=== PATIENT | male | born 1945 | race Asian ===

== ENCOUNTER 2022-06-05 23:52 | Emergency (ER) | payer MEDICARE, OTHER ==
[~2022-06-05] VITALS: Ht 170.2 cm; Wt 59.9 kg
[2022-06-06] MEDS ORDERED: MORPHINE SULFATE 2 MG/ML SYRINGE IVP ONE (00:45)
[2022-06-06] MEDS ORDERED: SODIUM CHLORIDE 0.9% 1,000 ML IV ONE (00:45)
[2022-06-06 01:07] LABS: BASOPHILS % (AUTO) 0.7 % (0.0-2.0); EOSINOPHILS % (AUTO) 2.4 % (1.0-6.0); HEMATOCRIT 39.3 % (41-53); LYMPHOCYTES # (AUTO) 1.6 K/uL (1.0-4.8); LYMPHOCYTES % (AUTO) 15.7 % (22.0-44.0); MEAN CORPUSCULAR HEMOGLOBIN 33.2 pg (26.0-34.0); MEAN CORPUSCULAR HGB CONC 35.7 G/dL (31.0-37.0); MEAN CORPUSCULAR VOLUME 93 fL (80-100); MONOCYTES # (AUTO) 0.9 K/uL (0.1-1.0); MONOCYTES % (AUTO) 8.6 % (2.0-9.0); NEUTROPHILS # (AUTO) 7.3 K/uL (1.8-7.7); NEUTROPHILS % (AUTO) 72.6 % (40.0-70.0); PLATELET COUNT (AUTO) 185 K/uL (150-450); RED BLOOD CELL COUNT(AUTO) 4.23 MIL/uL (4.50-5.90); RED CELL DISTRIBUTION WIDTH 14.8 % (11.5-14.5)
[2022-06-06 01:10] LABS: APPEARANCE,URINE CLEAR (CLEAR); BILIRUBIN,URINE NEGATIVE (NEGATIVE); GLUCOSE, URINE (UA) NEGATIVE (NEGATIVE); KETONES,URINE NEGATIVE (NEGATIVE); LEUKOCYTE ESTERASE ,URINE NEGATIVE (NEGATIVE); NITRATE,URINE NEGATIVE (NEGATIVE); OCCULT BLOOD,URINE NEGATIVE (NEGATIVE); PROTEIN,URINE NEGATIVE (NEGATIVE); SPECIFIC GRAVITIY, URINE 1.015 (1.003-1.030); UROBILINOGEN,URINE <=1.0 mg/dL (<=1.0)
[2022-06-06 01:18] LABS: ANION GAP 2 mmol/L (8-16); CALCIUM, TOTAL 8.7 mg/dL (8.8-10.5); CARBON DIOXIDE 32 mmol/L (22-29); CHLORIDE 101 mmol/L (98-107); CREATININE 0.82 mg/dL (0.60-1.30); GLUCOSE,RANDOM 121 mg/dL (70-110); POTASSIUM 3.9 mmol/L (3.5-5.1); SODIUM SERUM 135 mmol/L (136-145); UREA NITROGEN, BLOOD 12 mg/dL (7-18)
[2022-06-06 01:22] LABS: GLOMERULAR FILTR. RATE CALC > 60 mL/min (>60)
[2022-06-06 01:25] LABS: ALANINE AMINOTRANSFERASE 13 U/L (12-78); ALBUMIN 3.4 g/dL (3.4-5.0); ALKALINE PHOSPHATASE 65 U/L (46-116); ASPARTATE AMINOTRANSFERASE 15 U/L (15-37); BILIRUBIN,TOTAL 0.5 mg/dL (0.1-1.0); LIPASE 216 U/L (73-393); TOTAL PROTEIN, SERUM 6.8 g/dL (6.4-8.2)
[2022-06-06] MEDS ORDERED: OMEP20 PO (05:12)
[2022-06-06 05:22] VITALS: BP 139/67
== END 2022-06-06 06:03 | disposition home or self-care (01) ==
LOC: EMS 23:55
DX: R10.13 Epigastric pain (principal); F17.210 Nicotine dependence, cigarettes, uncomplicated; I10 Essential (primary) hypertension
CPT/HCPCS: 99285; 80053; 81003; 83690; 84484; 85025; 36415; 74176; 96374; 71045; 96361; 93005; J2270; J7030; 96375

== ENCOUNTER 2024-07-25 08:56 | Emergency (ER) | payer MEDICARE, OTHER ==
[~2024-07-25] VITALS: Ht 170.2 cm; Wt 70.5 kg
[~2024-07-25 08:56] MED LIST: OMEP20 PO
[2024-07-25 10:04] LABS: COVID AG,FIA SOURCE NASAL SWAB
[2024-07-25 10:37] LABS: INFLUENZA TYPE A NEGATIVE FOR TYPE A (NEGATIVE); INFLUENZA TYPE B NEGATIVE FOR TYPE B (NEGATIVE); SARS-COV2 (COVID) ANTIGEN,FIA Negative (Negative)
[2024-07-25 11:08] VITALS: PULSE 93; RESP 22; O2SAT 95
[2024-07-25] MEDS: ALBUTEROL SULFATE 2.5 MG/0.5 ML NEB SOLUTION NEB ONE (11:08)
[2024-07-25] MEDS: IPRATROPIUM BROMIDE 0.5 MG/2.5 ML NEB SOLUTION NEB ONE (11:08)
[2024-07-25 11:09] LABS: BASOPHILS % (AUTO) 0.8 % (0.0-2.0); EOSINOPHILS % (AUTO) 0.4 % (1.0-6.0); HEMATOCRIT 40.5 % (41-53); HEMOGLOBIN 14.4 g/dL (13.5-17.5); LYMPHOCYTES # (AUTO) 1.1 K/uL (1.0-4.8); LYMPHOCYTES % (AUTO) 7.1 % (22.0-44.0); MEAN CORPUSCULAR HEMOGLOBIN 33.4 pg (26.0-34.0); MEAN CORPUSCULAR HGB CONC 35.6 G/dL (31.0-37.0); MEAN CORPUSCULAR VOLUME 94 fL (80-100); MONOCYTES % (AUTO) 6.2 % (2.0-9.0); NEUTROPHILS # (AUTO) 13.6 K/uL (1.8-7.7); PLATELET COUNT (AUTO) 183 K/uL (150-450); RED BLOOD CELL COUNT(AUTO) 4.31 MIL/uL (4.50-5.90); RED CELL DISTRIBUTION WIDTH 14.9 % (11.5-14.5); WHITE BLOOD COUNT (AUTO) 15.9 K/uL (4.5-11.0)
[2024-07-25 11:14] LABS: NEUTROPHILS % (AUTO) 85.5 % (40.0-70.0)
[2024-07-25 11:18] LABS: ANION GAP 6 mmol/L (8-16); CARBON DIOXIDE 31 mmol/L (22-29); CHLORIDE 94 mmol/L (98-107); CREATININE 0.78 mg/dL (0.60-1.30); GLOMERULAR FILTR. RATE CALC > 60 mL/min (>60); GLUCOSE,RANDOM 111 mg/dL (70-110); POTASSIUM 4.2 mmol/L (3.5-5.1); SODIUM SERUM 131 mmol/L (136-145); UREA NITROGEN, BLOOD 9 mg/dL (7-18)
[2024-07-25 11:20] VITALS: PULSE 97; RESP 20; O2SAT 99
[2024-07-25 11:23] LABS: CALCIUM, TOTAL 8.6 mg/dL (8.8-10.5)
[2024-07-25 11:50] VITALS: TEMP 98.9
[2024-07-25] MEDS: MethylPREDNISolone SOD SUCC 125 MG/2 ML VIAL IVP ONE (12:13)
[2024-07-25] MEDS: AZITHROMYCIN 500 MG/NS 250 ML IV ONE (12:14)
[2024-07-25] MEDS: CefTRIAXone 1 GM/DEXTROSE 50 ML IV ONE (12:14)
[2024-07-25 13:54] VITALS: BP 98/65; PULSE 97; RESP 20; O2SAT 96
== END 2024-07-25 14:37 | disposition short-term general hospital (02) ==
LOC: EMS 08:56
DX: J44.0 Chronic obstructive pulmonary disease with (acute) lower respiratory infection (principal); J45.901 Unspecified asthma with (acute) exacerbation; J06.9 Acute upper respiratory infection, unspecified; I10 Essential (primary) hypertension; F17.210 Nicotine dependence, cigarettes, uncomplicated; Z79.899 Other long term (current) drug therapy; Z20.822 Contact with and (suspected) exposure to COVID-19
CPT/HCPCS: 99285; 96365; 71045; 96375; 87426; 80048; 85025; 87804; 36415; 94640; 96368; J2919; J0456; J0696; J7613

== ENCOUNTER 2025-06-05 11:53 | Emergency (ER) | payer MEDICARE, OTHER ==
[~2025-06-05] VITALS: Ht 170.2 cm; Wt 63.6 kg
[~2025-06-05 11:53] MED LIST changes: +OMEP-148 PO; -OMEP20 PO
[2025-06-05 11:56] VITALS: BP 142/79; TEMP 98.2
[2025-06-05 12:20] LABS: COVID AG,FIA SOURCE NASAL SWAB
[2025-06-05 12:53] LABS: SARS-COV2 (COVID) ANTIGEN,FIA Negative (Negative)
[2025-06-05 12:55] LABS: INFLUENZA TYPE A NEGATIVE FOR TYPE A (NEGATIVE); INFLUENZA TYPE B NEGATIVE FOR TYPE B (NEGATIVE)
[2025-06-05] MEDS: CEPHALEXIN MONOHYDRATE 500 MG CAPSULE PO ONE (13:36)
[2025-06-05] MEDS: GuaiFENesin/D-METHORPHAN [SUGAR-FREE] 200-20MG/10 ML SYRUP UDCUP PO ONE (13:36)
[2025-06-05] MEDS: IPRATROPIUM BROMIDE 0.5 MG/2.5 ML NEB SOLUTION NEB ONE (13:45)
[2025-06-05] MEDS: ALBUTEROL SULFATE 2.5 MG/0.5 ML NEB SOLUTION NEB ONE (13:45)
[2025-06-05 13:46] VITALS: PULSE 64; RESP 16; O2SAT 100
[2025-06-05 13:47] VITALS: PULSE 67; RESP 16; O2SAT 100
[2025-06-05] MEDS ORDERED: ALBU18HF12 IH (14:14)
[2025-06-05] MEDS ORDERED: GUAIFDM PO (14:14)
[2025-06-05] MEDS ORDERED: AZIT250T9 PO (14:14)
[2025-06-05] MEDS ORDERED: PRED-554 PO (14:14)
== END 2025-06-05 14:25 | disposition home or self-care (01) ==
LOC: EMS 11:53
DX: J44.1 Chronic obstructive pulmonary disease with (acute) exacerbation (principal); J45.901 Unspecified asthma with (acute) exacerbation; I10 Essential (primary) hypertension; F17.210 Nicotine dependence, cigarettes, uncomplicated; Z20.822 Contact with and (suspected) exposure to COVID-19
CPT/HCPCS: 99283; 71045; 87426; 87804; 94640; 96372; J2919; 94760